=== PATIENT | male | born 1950 | race Native Hawaiian/Other Pacific Islander ===

== ENCOUNTER 2016-07-31 05:52 | Day surgery (SDC) | payer OTHER | END 2016-07-31 08:01 | disposition home or self-care (01) | LOC: OR 05:52 | PROC: 08RK3JZ Replacement of Left Lens with Synthetic Substitute, Percutaneous Approach (ICD-10-PCS; principal; 2016-07-31) | DX: H25.812 Combined forms of age-related cataract, left eye (principal) | CPT/HCPCS: 66984; V2632 ==

== ENCOUNTER 2016-10-02 06:40 | Day surgery (SDC) | payer OTHER | END 2016-10-02 10:15 | disposition home or self-care (01) | LOC: OR 06:40 | PROC: 08RJ3JZ Replacement of Right Lens with Synthetic Substitute, Percutaneous Approach (ICD-10-PCS; principal; 2016-10-02) | DX: H25.811 Combined forms of age-related cataract, right eye (principal) | CPT/HCPCS: 66984; V2632 ==

== ENCOUNTER 2020-09-20 03:16 | Inpatient (IN) | payer OTHER ==
[~2020-09-20] VITALS: Ht 177.8 cm; Wt 66.9 kg
[2020-09-20 03:16] VITALS: BP 129/84; TEMP 100.2
[2020-09-20 04:00] VITALS: BP 126/61
[2020-09-20 04:17] LABS: PLATELET COUNT 269 K/uL (142-355)
[2020-09-20 04:25] LABS: SODIUM 138 mmol/L (136-145)
[2020-09-20 04:54] VITALS: BP 122/60
[2020-09-20 06:30] VITALS: BP 101/56
[2020-09-20] MEDS ORDERED: METOPROLOL25 M1 PO (06:50)
[2020-09-20] MEDS ORDERED: LORATADINE10 M1 PO (06:51)
[2020-09-20] MEDS ORDERED: FERROUS SULF325 M1 PO (06:52)
[2020-09-20] MEDS ORDERED: TIROSINT50 MCG PO (06:53)
[2020-09-20] MEDS ORDERED: CILOSTAZOL PO (11:46)
[2020-09-20 19:20] VITALS: BP 94/52; TEMP 97.4; Ht 177.8 cm; Wt 66.9 kg
[2020-09-20 20:00] VITALS: BP 128/54; TEMP 98.4
[2020-09-21] VITALS: BP 117/74; TEMP 98.6
[2020-09-21 04:00] VITALS: BP 131/56; TEMP 99
[2020-09-21 06:02] LABS: PLATELET COUNT 253 K/uL (142-355)
[2020-09-21 08:00] VITALS: BP 133/65; TEMP 98.3
[2020-09-21 12:00] VITALS: BP 123/58; TEMP 98.3
[2020-09-21] MEDS ORDERED: BENZONATATE100 MG PO (13:41)
[2020-09-21] MEDS ORDERED: IPRAAER INH (13:43)
[2020-09-21] MEDS ORDERED: AZIT250T3 PO (13:44)
[2020-09-21] MEDS ORDERED: LEVAQUIN250 MG PO (13:44)
[2020-09-21] MEDS ORDERED: ALBU0.0813 INH (13:46)
[2020-09-21] MEDS ORDERED: DOCU100C10 PO (14:28)
[2020-09-21] MEDS ORDERED: FERROUS SULF325 M1 PO (14:28)
[2020-09-21 16:00] VITALS: BP 104/56; TEMP 98.2
== END 2020-09-21 16:32 | disposition home or self-care (01) | DRG 204 ==
LOC: ED 03:21 → MED/SURG 05:20
PROVIDERS: ADMIT Hospitalist; ATTEND Internal Medicine
DX: R91.8 Other nonspecific abnormal finding of lung field (principal); R07.89 Other chest pain; I25.10 Atherosclerotic heart disease of native coronary artery without angina pectoris; J44.9 Chronic obstructive pulmonary disease, unspecified; I10 Essential (primary) hypertension; E78.49 Other hyperlipidemia; E03.8 Other specified hypothyroidism; I73.89 Other specified peripheral vascular diseases; N28.9 Disorder of kidney and ureter, unspecified; D50.8 Other iron deficiency anemias
CPT/HCPCS: 36415; 80048; 80053; 81000; 82150; 82550; 82607; 82728; 82746; 83540; 83690; 84484; 85027; 87040; 87077; 87185; 87186; 87205; 87635; 93005; 94640; 94664; 94760; 96365; 96366; 96375; 99284; J0456; J1650; J1885; J1956; J2270; U0003

== ENCOUNTER 2020-09-29 10:20 | Outpatient (CLI) | payer OTHER ==
[~2020-09-29 10:20] MED LIST: ALBU0.0813 INH; AZIT250T3 PO; BENZONATATE100 MG PO; CILOSTAZOL PO; DOCU100C10 PO; FERROUS SULF325 M1 PO; IPRAAER INH; LEVAQUIN250 MG PO; LORATADINE10 M1 PO; METOPROLOL25 M1 PO; TIROSINT50 MCG PO
== END 2020-09-29 17:42 | disposition home or self-care (01) ==
LOC: US 10:20
PROVIDERS: ATTEND Surgery
DX: I71.4 Abdominal aortic aneurysm, without rupture (principal); I73.9 Peripheral vascular disease, unspecified

== ENCOUNTER 2020-10-19 18:46 | Inpatient (IN) | payer OTHER ==
[~2020-10-19] VITALS: Ht 177.8 cm; Wt 60.4 kg
[2020-10-19 18:46] VITALS: BP 124/64; TEMP 97.2
[2020-10-19 19:00] VITALS: BP 124/64
[2020-10-19 20:00] VITALS: BP 119/66
[2020-10-19 20:26] LABS: PLATELET COUNT 190 K/uL (142-355)
[2020-10-19 20:35] LABS: POTASSIUM 4.7 mmol/L (3.6-5.2); SODIUM 134 mmol/L (136-145)
[2020-10-19 21:00] VITALS: BP 125/65
[2020-10-19 22:00] VITALS: BP 122/63
[2020-10-19 23:30] VITALS: BP 125/65
[2020-10-20] VITALS (16 sets, daily range): BP systolic 118–151; BP diastolic 46–73
[2020-10-20 05:57] LABS: PLATELET COUNT 166 K/uL (142-355)
[2020-10-20 06:40] LABS: POTASSIUM 4.7 mmol/L (3.6-5.2)
[2020-10-20 19:15] LABS: PLATELET COUNT 178 K/uL (142-355)
[2020-10-20 19:48] LABS: POTASSIUM 4.6 mmol/L (3.6-5.2)
[2020-10-21] VITALS (10 sets, daily range): BP systolic 118–171; BP diastolic 63–84; TEMP 97.5–98.5; Ht 177.8 cm; Wt 60.4 kg
--- NOTE | 2020-10-21 06:23 | NUR ---
DECREASED FIO2 TO 40% POST ABG WITH PAO2 AT 112.
[2020-10-21 08:42] LABS: POTASSIUM 4.7 mmol/L (3.6-5.2)
[2020-10-21 08:50] LABS: PLATELET COUNT 168 K/uL (142-355)
[2020-10-22] VITALS: BP 160/74; TEMP 97.5
[2020-10-22 04:00] VITALS: BP 162/79; TEMP 97.4
[2020-10-22 06:46] VITALS: BP 170/83; TEMP 97.5
[2020-10-22 08:00] VITALS: BP 170/83; TEMP 97.5
--- NOTE | 2020-10-22 10:55 | NUR ---
UPON RT ARRICAL PT SPO2 AT 87% ON 4LPM AT 40% FIO2. RT INCREASED FLOW TO 50. SPO2 CAME UP TO 90%. RT SPOKE WITH DR CORMIER OUTSIDE OF PT ROOM. PER DR CORMIER, SPO2 BETWEEN 88-95 IS ACCEPTABLE WITH PT LUNG HISTORY.
[2020-10-22 12:00] VITALS: BP 148/70; TEMP 97.5
--- NOTE | 2020-10-22 13:54 | NUR ---
ORDERS SENT TO CERTIFIED RESPIRATORY FOR OXYGEN PER DR. MORALES ORDERS. DAVID ALEJANDRETREET RESIDENT SON WILL BE PICKING UP OXYGEN AND BRINGING WITH HIM FOR PATIENT UPON DISCHARGE.
--- NOTE | 2020-10-22 14:45 | NUR ---
PT SIGNED AMA FORM REQUESTED BY PT. DISCHARGE INSTRUCTIONS AND EDUCATION WERE GIVEN TO PT VERBALLY AND WRITTEN. WRITTEN EDUCATION WAS PRINTED AND GIVEN TO PT TO REVIEW AT A LATER TIME NEEDED. IV WAS REMOVED WITHOUT DIFFICULTY WITH CATHETER STILL INTACT. PT WAS DISCHARGED FROM HOSPITAL TO SON'S PERSONAL VEHICLE VIA WHEELCHAIR WITH PERSONAL BELONGINGS AND HOME MEDICATIONS. PT WAS CONNECTED TO O2 TANK WITH NASAL CANNULA SET TO 5 LPM PRIOR TO BEING PLACED INSIDE THE VEHICLE. PT WAS PLACED INSIDE VEHICLE ALONG WITH PERSONAL BELONGINGS. PT SHOWED SLIGHT LABORED BREATHING PRIOR TO NASAL CANNULA ADMINISTRATION. AFTER NASAL CANNULA WAS PLACED ON PT DIFFICULY IN BREATHING DECREASED AND NAD WAS NOTED.
--- NOTE | 2020-11-05 10:11 | NUR ---
i s/w pts , Winter Jauregui, to notify her of appt with Dr. Avinash Hopper ph [phone], for sunday11/08/20 @ 10am in the [place] office for Mr. Jauregui to be seen for fu angiogram that was done in their vascular surgery office in [place]. They will stop by our rad dept and pu a disk to take to Dr. Hopper for this appt.
== END 2020-10-22 14:55 | disposition left against medical advice (07) | DRG 177 ==
LOC: ED 18:46 → MED/SURG 10-20 19:21
PROVIDERS: Emergency Medicine Emergency Medical Services; ADMIT Family Medicine; ATTEND Family Medicine
DX: U07.1 COVID-19 (principal); J12.82 Pneumonia due to coronavirus disease 2019; J44.0 Chronic obstructive pulmonary disease with (acute) lower respiratory infection; I10 Essential (primary) hypertension; J44.9 Chronic obstructive pulmonary disease, unspecified; I25.10 Atherosclerotic heart disease of native coronary artery without angina pectoris; E03.8 Other specified hypothyroidism; M15.8 Other polyosteoarthritis; E78.49 Other hyperlipidemia
CPT/HCPCS: 36415; 36600; 80048; 80053; 82272; 82728; 82805; 83605; 83735; 84100; 84484; 85027; 85379; 86140; 86850; 86900; 86901; 86922; 87040; 87502; 87635; 93005; 94760; J0456; J0696; J1100; J1650; J2405; P9016; Q9963; U0003

== ENCOUNTER 2020-10-24 20:00 | Inpatient (IN) | payer OTHER ==
[~2020-10-24] VITALS: Ht 177.8 cm; Wt 61.0 kg
[2020-10-24 20:00] VITALS: BP 129/86; TEMP 98.2
[2020-10-24 20:21] LABS: PLATELET COUNT 215 K/uL (142-355)
[2020-10-24 20:33] LABS: POTASSIUM 4.1 mmol/L (3.6-5.2); SODIUM 138 mmol/L (136-145)
[2020-10-24 20:45] LABS: PARTIAL THROMBOPLASTIN TIME 26.7 SECONDS (24.5-33.6)
[2020-10-24 21:00] VITALS: BP 104/56
[2020-10-24 22:00] VITALS: BP 115/67
[2020-10-25] VITALS (10 sets, daily range): BP systolic 127–162; BP diastolic 55–80; TEMP 97.4–98.2; Ht 177.8 cm; Wt 61.0 kg
[2020-10-25 05:15] LABS: PLATELET COUNT 229 K/uL (142-355)
[2020-10-25 05:52] LABS: POTASSIUM 4.6 mmol/L (3.6-5.2)
[2020-10-26 00:06] VITALS: BP 140/80; TEMP 98.6
[2020-10-26 04:00] VITALS: BP 136/80; TEMP 98.7
[2020-10-26 05:16] LABS: PLATELET COUNT 238 K/uL (142-355)
[2020-10-26 05:35] LABS: POTASSIUM 4.5 mmol/L (3.6-5.2)
[2020-10-26 08:00] VITALS: BP 134/71; TEMP 97.9
[2020-10-26 12:00] VITALS: BP 161/75; TEMP 97.8
[2020-10-26 16:00] VITALS: BP 112/69; TEMP 97.9
[2020-10-26 20:00] VITALS: BP 120/69; TEMP 98.5
[2020-10-27] VITALS: BP 139/79; TEMP 97.8
[2020-10-27 03:56] VITALS: BP 159/86; TEMP 98.5
[2020-10-27 08:00] VITALS: BP 150/80; TEMP 97.8
[2020-10-27 12:01] VITALS: BP 136/86; TEMP 97.8
== END 2020-10-27 18:00 | disposition home or self-care (01) | DRG 177 ==
LOC: ED 20:00 → MED/SURG 22:45
PROVIDERS: Hospitalist; ADMIT Family Medicine; ATTEND Family Medicine
DX: U07.1 COVID-19 (principal); J12.82 Pneumonia due to coronavirus disease 2019; J44.0 Chronic obstructive pulmonary disease with (acute) lower respiratory infection; I10 Essential (primary) hypertension; E03.8 Other specified hypothyroidism; E78.49 Other hyperlipidemia; Z72.0 Tobacco use
CPT/HCPCS: 36415; 80053; 82550; 83735; 83880; 84100; 84484; 85027; 85379; 85610; 85730; 86140; 87635; 93005; 94760; 96365; 96375; 99284; J0456; J0696; J1100; J1650; J2270; J2405; U0003

== ENCOUNTER → 2020-11-10 | Outpatient (CLI) | payer OTHER | LOC: CT 12:41 | PROVIDERS: ATTEND Internal Medicine Sleep Medicine | DX: J86.9 Pyothorax without fistula (principal) | CPT/HCPCS: 36415; 82565; 84520; Q9963 ==

== ENCOUNTER 2020-12-08 19:31 | Emergency (ER) | payer OTHER ==
[~2020-12-08] VITALS: Ht 177.8 cm; Wt 62.1 kg
[2020-12-08 22:47] VITALS: BP 106/58; TEMP 99
== END 2020-12-08 22:47 | disposition home or self-care (01) ==
LOC: ED 19:31
DX: S22.41XA Multiple fractures of ribs, right side, initial encounter for closed fracture (principal); J40 Bronchitis, not specified as acute or chronic; F17.210 Nicotine dependence, cigarettes, uncomplicated; Y04.2XXA Assault by strike against or bumped into by another person, initial encounter; Y92.89 Other specified places as the place of occurrence of the external cause
CPT/HCPCS: 96360; 96365; 96375; 99284; J0696; J1885; J2270; J2405

== ENCOUNTER 2021-03-08 13:02 | Outpatient (CLI) | payer OTHER | END 2021-03-08 19:16 | disposition home or self-care (01) | LOC: RAD 13:02 | PROVIDERS: ATTEND Family Medicine | DX: M54.6 Pain in thoracic spine (principal) ==

== ENCOUNTER 2021-03-24 09:27 | Outpatient (CLI) | payer OTHER | END 2021-03-24 20:45 | disposition home or self-care (01) | LOC: CT 09:27 | PROVIDERS: ATTEND Family Medicine | DX: R91.8 Other nonspecific abnormal finding of lung field (principal) | CPT/HCPCS: 36415; 82565; 84520 ==

== ENCOUNTER 2021-03-24 09:49 | Emergency (ER) | payer OTHER ==
[~2021-03-24] VITALS: Ht 177.8 cm; Wt 55.3 kg
[2021-03-24 10:06] VITALS: BP 99/43; TEMP 98.1
[2021-03-24 11:02] LABS: PLATELET COUNT 444 K/uL (142-355)
[2021-03-24 11:05] LABS: POTASSIUM 4.1 mmol/L (3.6-5.2)
== END 2021-03-24 12:12 | disposition home or self-care (01) ==
LOC: ED 09:49
PROVIDERS: Emergency Medicine
DX: Z53.21 Procedure and treatment not carried out due to patient leaving prior to being seen by health care provider (principal)
CPT/HCPCS: 80053; 85027; 99283

== ENCOUNTER 2021-04-13 12:59 | Outpatient (CLI) | payer OTHER | END 2021-04-13 19:09 | disposition home or self-care (01) | LOC: RAD 12:59 | PROVIDERS: ATTEND Nurse Practitioner Family | DX: K59.00 Constipation, unspecified (principal) ==

== ENCOUNTER 2021-04-15 14:01 | Emergency (ER) | payer OTHER ==
[~2021-04-15] VITALS: Ht 177.8 cm; Wt 50.3 kg
[2021-04-15 14:08] VITALS: TEMP 97.4
[2021-04-15 15:00] VITALS: BP 115/70
== END 2021-04-15 15:23 | disposition home or self-care (01) ==
LOC: ED 14:01
DX: M54.89 Other dorsalgia (principal); G89.29 Other chronic pain
CPT/HCPCS: 96372; 99283; J1885; J2930

== ENCOUNTER 2021-04-25 12:37 | Outpatient (CLI) | payer OTHER | END 2021-04-25 18:55 | disposition home or self-care (01) | LOC: CT 12:37 | PROVIDERS: ATTEND Nurse Practitioner Family | DX: R91.8 Other nonspecific abnormal finding of lung field (principal) ==